=== PATIENT | female | born 1945 | race Caucasian/White ===

== ENCOUNTER → 2016-05-06 | Outpatient (CLI) | payer MEDICARE ==
--- NOTE | 2016-05-08 13:23 | MM ---
Reason for exam: screening (asymptomatic). Last mammogram was performed 8 years and 6 months ago. History: Patient is postmenopausal and history of other cancer. 2 cyst aspirations of the right breast. Took estrogen for 4 years 2 months. Took progesterone for 4 years 2 months. Physical Findings: A clinical breast exam by your physician is recommended on an annual basis and results should be correlated with mammographic findings. MG 3D Screening Mammo W/Cad Bilateral CC and MLO view(s) were taken. Prior study comparison: October 30, 2007, bilateral digital screening mammogram. March 28, 2003, bilateral screening mammogram. There are scattered fibroglandular densities. There is chronic nodularity bilaterally. No significant changes when compared with prior studies. ASSESSMENT: Benign, BI-RAD 2 RECOMMENDATION: Routine screening mammogram of both breasts in 1 year.
== END | disposition home or self-care (01) ==
LOC: RADMAMWWP 12:44
PROVIDERS: ATTEND Family Medicine
DX: Z12.31 Encounter for screening mammogram for malignant neoplasm of breast (principal)
CPT/HCPCS: 77063; G0202

== ENCOUNTER → 2023-04-01 | Outpatient (CLI) | payer MEDICARE ==
--- NOTE | 2023-04-02 20:08 | MM ---
Reason for Exam: Screening (asymptomatic). Last mammogram was performed 6 year(s) and 11 month(s) ago. Patient History: Menarche at age 15. First Full-Term at age 22. Postmenopausal. Other cancer. Estrogen for 4 years, 2 months. Progesterone for 4 years, 2 months. Cyst Aspiration on the Right side. Cyst Aspiration on the Right side. Risk Values: [place] 5 year model risk: 1.6%. NCI Lifetime model risk: 3.4%. Prior Study Comparison: 03/28/2003 Bilateral Screening Mammogram, [facility]. 10/30/2007 Bilateral Screening Mammogram, [facility]. 05/06/2016 Bilateral Screening Mammogram, [facility]. Tissue Density: There are scattered fibroglandular densities. Findings: Analyzed By CAD. Chronic nodularity medial right breast. A mole with associated calcifications are noted upper outer aspect of the left breast. There is new nodularity posterior outer aspect of the right breast for which further evaluation is recommended. Overall Assessment: Incomplete: need additional imaging evaluation, BI-RAD 0 Management: Special View Mammogram of the right breast. Diagnostic Breast Ultrasound of the right breast. Targeted ultrasound if any persisting abnormality on additional views. [facility] will attempt to contact patient to return for supplemental views and ultrasound if indicated. Electronically signed and approved by: Roberto Barney M.D. Radiologist
== END | disposition home or self-care (01) ==
LOC: RADMAMWWP 09:01
PROVIDERS: ATTEND Family Medicine
DX: Z12.31 Encounter for screening mammogram for malignant neoplasm of breast (principal); Z78.0 Asymptomatic menopausal state
CPT/HCPCS: 77063; 77067

== ENCOUNTER → 2023-04-09 | Outpatient (CLI) | payer MEDICARE ==
--- NOTE | 2023-04-09 08:40 | MM ---
Reason for Exam: Additional evaluation requested from abnormal screening. Last screening mammogram was performed less than 1 month ago. Patient History: Menarche at age 15. First Full-Term at age 22. Postmenopausal. Estrogen for 4 years, 2 months. Progesterone for 4 years, 2 months. Cyst Aspiration on the Right side. Cyst Aspiration on the Right side. Risk Values: [place] 5 year model risk: 1.6%. NCI Lifetime model risk: 3.4%. Prior Study Comparison: 10/30/2007 Bilateral Screening Mammogram, [facility]. 05/06/2016 Bilateral Screening Mammogram, [facility]. 04/01/2023 Bilateral MG 3D screening mammo w/cad, [facility]. Tissue Density: Right: There are scattered fibroglandular densities. Findings: Analyzed By CAD. Pattern is stable. The 4 mm density at the 9:00 position 8 cm the nipple posterior right breast remains present on compression medial lateral view. Additional workup with ultrasound is recommended. Overall Assessment: Incomplete: need additional imaging evaluation, BI-RAD 0 Management: Diagnostic Breast Ultrasound of the right breast. A negative mammogram report should not preclude additional follow up of suspicious palpable abnormalities. Patient should continue monthly self breast exam. A clinical breast exam by your physician is recommended on an annual basis and results should be correlated with mammographic findings. Electronically signed and approved by: Jhonathan Espitia D.O. Radiologis
--- NOTE | 2023-04-09 09:26 | USB ---
Reason for Exam: Additional evaluation requested from abnormal screening. Patient History: Menarche at age 15. First Full-Term at age 22. Postmenopausal. Estrogen for 4 years, 2 months. Progesterone for 4 years, 2 months. Cyst Aspiration on the Right side. Cyst Aspiration on the Right side. Risk Values: [place] 5 year model risk: 1.6%. NCI Lifetime model risk: 3.4%. Technique: Method: Targeted. Prior Study Comparison: 12/08/2000 Right Diagnostic Ultrasound, [facility]. 10/30/2007 Bilateral Screening Mammogram, [facility]. 05/06/2016 Bilateral Screening Mammogram, [facility]. 04/01/2023 Bilateral MG 3D screening mammo w/cad, [facility]. Findings: The lateral section of the breast of the right breast, the axilla of the right breast and the retroareolar of the right breast were scanned. At the 9:00 position 8 cm from the nipple within the right breast is a simple cyst with good through transmission posterior wall enhancement and smooth borders. This correlates with the mammographic finding. Overall Assessment: Benign, BI-RAD 2 Management: Screening Mammogram of both breasts in 1 year. A clinical breast exam by your physician is recommended on an annual basis and results should be correlated with mammographic findings. This exam should not preclude additional follow-up of suspicious palpable abnormalities. Results were given to the patient verbally at the time of exam. Electronically signed and approved by: Jhonathan Espitia D.O. Radiologis
== END | disposition home or self-care (01) ==
LOC: RADMAMWWP 07:55
PROVIDERS: ATTEND Family Medicine
DX: R92.321 Mammographic fibroglandular density, right breast (principal); Z78.0 Asymptomatic menopausal state
CPT/HCPCS: 77065; 76642; G0279; 77061

== ENCOUNTER 2023-09-09 10:15 | Day surgery (SDC) | payer MEDICARE ==
[2023-09-09 10:51] VITALS: TEMP 97.4
[2023-09-09] MEDS: LACTATED RINGERS 1,000 ML IV SCH (11:12)
[2023-09-09] MEDS: IV FLUID CONTINUATION 1,000 ML IV ONE (11:13)
[2023-09-09] MEDS ORDERED: PROPOFOL 10 MG/ML 20 ML VIAL IV ONE (11:17)
--- NOTE | 2023-09-09 11:20 | P.GSHP ---
History of Present Illness H&P Date: 09/09/23 Chief Complaint: Colon cancer screening 78-year-old female here for colonoscopy. Last colonoscopy over 10 years ago. No bowel complaints. No family history of colon cancer. Past Medical History Past Medical History: Cancer, Hyperlipidemia, Hypertension Additional Past Medical History / Comment(s): left kidney cancer History of Any Multi-Drug Resistant Organisms: None Reported Past Surgical History: Tonsillectomy, Tubal Ligation Additional Past Surgical History / Comment(s): left nephrectomy, brachial cleft cycst removed , Past Anesthesia/Blood Transfusion Reactions: No Reported Reaction Smoking Status: Former smoker - Past Family History Father Family Medical History: Cancer Additional Family Medical History / Comment(s): prostate Medications and Allergies Home Medications Medication Instructions Recorded Confirmed Type Flax Seed Oil 1 dose PO DAILY 09/08/23 09/09/23 History Melatonin (Unk) 1 tab PO HS PRN 09/08/23 09/09/23 History Multivitamins, Thera [Multivitamin 1 tab PO DAILY 09/08/23 09/09/23 History (formulary)] Simvastatin [Zocor] 20 mg PO HS 09/08/23 09/09/23 History amLODIPine BESYLATE/BENAZEPRIL 1 tab PO DAILY 09/08/23 09/09/23 History [amLODIPine BESYLATE/BENAZEPRIL 5-40 mg] hydroCHLOROthiazide 12.5 mg PO DAILY 09/08/23 09/09/23 History Allergies Allergy/AdvReac Type Severity Reaction Status Date / Time sulfamethoxazole Allergy Rash/Hives Verified 09/09/23 10:47 [From Bactrim] trimethoprim [From Bactrim] Allergy Rash/Hives Verified 09/09/23 10:47 Surgical - Exam Vital Signs Temp Pulse Resp BP Pulse Ox 97.4 F L 88 18 171/81 97 09/09/23 10:46 09/09/23 10:46 09/09/23 10:46 09/09/23 10:46 09/09/23 10:46 Physical exam: General: Well-developed, well-nourished HEENT: Normocephalic, sclerae nonicteric Abdomen: Nontender, nondistended Extremities: No edema Neuro: Alert and oriented Assessment and Plan (1) Colon cancer screening Narrative/Plan: Will proceed with colonoscopy at this time. Current Visit: Yes Status: Acute Code(s): Z12.11 - ENCOUNTER FOR SCREENING FOR MALIGNANT NEOPLASM OF COLON SNOMED Code(s): 979269298
--- NOTE | 2023-09-09 11:33 | P.PCN ---
Date of Procedure: 09/09/23 Procedure(s) Performed: PREOPERATIVE DIAGNOSIS: Colon cancer screening POSTOPERATIVE DIAGNOSIS: Diverticulosis PROCEDURE: Colonoscopy ANESTHESIA: MAC SURGEON: Quique Woodall M.D. SPECIMENS: None ENDOSCOPIC PROCEDURE: The patient was placed on the endoscopy table in the left decubitus position. The Olympus colonoscope was inserted into the anus and passed under direct visualization to the base of the cecum. The appendiceal orifice was visualized. From that point the scope was slowly withdrawn inspe cting all surfaces carefully. There were no neoplastic inflammatory or polypoid lesions throughout the cecum, ascending, transverse, descending, sigmoid and rectum. There was scattered diverticulosis noted throughout the colon. Digital rectal examination was normal. The patient was taken to the recovery room in stable condition per anesthesia guidelines. RECOMMENDATIONS: Resume diet. Further colonoscopy if symptoms develop.
[2023-09-09 11:57] VITALS: BP 126/70; PULSE 64; RESP 16
== END 2023-09-09 12:10 | disposition home or self-care (01) ==
LOC: ORWHC2ENDO 10:15
PROVIDERS: ATTEND Surgery
DX: Z12.11 Encounter for screening for malignant neoplasm of colon (principal); K21.9 Gastro-esophageal reflux disease without esophagitis; E78.5 Hyperlipidemia, unspecified; I10 Essential (primary) hypertension; N20.0 Calculus of kidney; Z85.528 Personal history of other malignant neoplasm of kidney; Z90.89 Acquired absence of other organs; Z98.51 Tubal ligation status; Z87.891 Personal history of nicotine dependence; Z88.2 Allergy status to sulfonamides; Z88.1 Allergy status to other antibiotic agents; Z79.899 Other long term (current) drug therapy
CPT/HCPCS: J2704; G0121